=== PATIENT | male | born 1945 | race Caucasian/White ===

== ENCOUNTER 2018-11-08 15:06 | Emergency (ER) | payer MEDICARE ==
[~2018-11-08] VITALS: Ht 172.7 cm; Wt 95.5 kg
[2018-11-08 15:09] VITALS: Ht 172.7 cm; Wt 95.5 kg
[2018-11-08] MEDS ORDERED: HYDROCHLOROTHIA25 MG PO (15:11)
[2018-11-08] MEDS ORDERED: ZOCOR40 MG PO (15:11)
[2018-11-08] MEDS ORDERED: BAYER CHEWABLE81 MG PO (15:11)
[2018-11-08 15:32] LABS: BASOPHILS 0.5 % (0-2); EOSINOPHILS 1.8 % (0-7); HEMOGLOBIN 14.9 g/dL (13.5-17.5); IMMATURE GRANULOCYTES 0.1 % (0-5); LYMPHOCYTES 29.5 % (15-50); MCH 31.4 pg (26.0-34.0); MCHC 35.5 g/dL (31.0-37.0); MCV 88.6 fL (80.0-100.0); MEAN PLATELET VOLUME 9.5 fL (7.4-10.4); MONOCYTES 8.6 % (2-11); NEUTROPHILS 59.5 % (40-80); PLATELET COUNT 258 10x3/uL (130-400); RBC 4.74 10x6/uL (4.20-6.10); RDW 13.6 % (11.5-14.5); WBC 7.3 10x3/uL (4.8-10.8)
[2018-11-08 16:02] LABS: INR 1.6 (0.85-1.17); PROTIME 18.4 SECONDS (11.6-15.0)
[2018-11-08] MEDS ORDERED: CLEOCIN HCL300 MG PO (16:16)
[2018-11-08 17:05] VITALS: BP 148/87
== END 2018-11-08 17:05 | disposition home or self-care (01) ==
LOC: D.ER 15:06
PROVIDERS: Family Medicine
DX: S41.111A Laceration without foreign body of right upper arm, initial encounter (principal); X99.9XXA Assault by unspecified sharp object, initial encounter; Y92.89 Other specified places as the place of occurrence of the external cause